=== PATIENT | male | born 1940 | race Caucasian/White ===

== ENCOUNTER 2019-08-01 12:17 | Outpatient (RCR) | payer MEDICARE, SELFPAY ==
[2019-08-01 14:00] VITALS: BP 166/76; PULSE 62; RESP 16; TEMP 36.7; O2SAT 98
[2019-08-01 14:34] VITALS: BP 166/76; BP 180/86; PULSE 62; RESP 16; O2SAT 98; BMI 34.7
== END 2019-09-22 09:00 | disposition home or self-care (01) ==
DX: Z95.1 Presence of aortocoronary bypass graft (principal); I25.2 Old myocardial infarction
CPT/HCPCS: 93798

== ENCOUNTER 2020-07-03 16:37 | Outpatient (CLI) | payer MEDICARE, SELFPAY ==
[2020-07-05 11:58] LABS: SARS-CoV-2 RNA PCR Positive
== END 2020-07-03 16:38 | disposition home or self-care (01) ==
LOC: CHSLAB 16:42
PROVIDERS: Family Medicine; PCP Nurse Practitioner Family; Visit Provider Nurse Practitioner Family
DX: U07.1 COVID-19 (principal)
CPT/HCPCS: 87635; C9803; U0003

== ENCOUNTER → 2022-11-02 09:30 | Outpatient (CLI) | payer MEDICARE, SELFPAY ==
--- NOTE | ~2022-11-02 | CT_ITS ---
EXAMINATION: CT brain wo con DATE: 11/02/2022 12:08 INDICATION: Transient ischemic attack. Episode of slurred speech, right foot drop. TECHNIQUE: Computed tomography (CT) of the head was performed without intravenous contrast. The mA wa s adjusted according to patient size. Iterative reconstruction technique was employed. Exam dose: 59 9.57 mGy-cm total exam DLP. COMPARISON: None FINDINGS: Vertebral and carotid siphon internal carotid artery calcifications. There is nonspecific d iminished attenuation of the cerebral white matter, likely due to chronic small vessel ischemic calderon es. No intracranial mass lesion or hemorrhage or cerebrovascular accident is detected. No midline shift or mass effect. No subdural or epidural hematoma. Bilateral ocular lens replacements. There is mucoperiosteal thickening of both maxillary sinuses. No skull fracture or bone destruction. IMPRESSION: Cerebral atherosclerosis and chronic small vessel ischemic changes of the cerebral white matter No acute intracranial finding Reviewed, dictated and finalized at [facility]. Reviewed, dictated and finalized at [facility].
== END ==
PROVIDERS: PCP Family Medicine; Visit Provider Family Medicine
DX: G45.9 Transient cerebral ischemic attack, unspecified (principal); I67.2 Cerebral atherosclerosis
CPT/HCPCS: 70450

== ENCOUNTER 2022-11-03 07:34 | Outpatient (CLI) | payer MEDICARE, SELFPAY ==
--- NOTE | ~2022-11-03 | US_ITS ---
EXAMINATION: US carotid duplex BI DATE: 11/03/2022 08:31 INDICATION: Transient ischemic attack TECHNIQUE: Grayscale, color Doppler, and pulsed Doppler images of the cervical carotid arteries were obtained. The degree of vessel stenosis is placed in one of the following categories: normal, <50%, 5 0-69%, >=70% but less than near-occlusion, near-occlusion, or total occlusion. Note that percent sten osis relative to normal distal artery lumen diameter is indirectly measured from velocity measurement s as described by Rafat, et al. Radiology 2003; [id number]:[id number]. COMPARISON: None. FINDINGS: RIGHT: The right common carotid artery (CCA) peak systolic velocity (PSV) is 127.6 cm/s. The right internal carotid artery (ICA) PSV is 80.9 cm/s. The right ICA end-diastolic velocity (EDV) is 18.7 cm/s. The r ight ICA/CCA PSV ratio is 0.6. Grayscale and color Doppler images yield an estimate of less than 50% diameter reduction from plaque in the ICA. The external carotid artery (ECA) PSV is 147.3 cm/s. There is antegrade flow in the right vertebral artery. LEFT: The left CCA PSV is 106.5 cm/s. The left ICA PSV is 58.4 cm/s. The left ICA EDV is 17.1 cm/s. The lef t ICA/CCA PSV ratio is 0.5. Grayscale and color Doppler images yield an estimate of less than 50% angelia meter reduction from plaque in the ICA. The ECA PSV is 189.7 cm/s. There is antegrade flow in the lef t vertebral artery. IMPRESSION: 1. Less than 50% stenosis in the right internal carotid artery. 2. Less than 50% stenosis in the left internal carotid artery. Reviewed, dictated and finalized at [facility]. Reviewed, dictated and finalized at [facility].
== END 2022-11-03 07:35 | disposition home or self-care (01) ==
PROVIDERS: PCP Family Medicine; Visit Provider Internal Medicine Cardiovascular Disease
DX: I65.23 Occlusion and stenosis of bilateral carotid arteries (principal)
CPT/HCPCS: 93880